=== PATIENT | male | born 1980 | race Caucasian/White ===

== ENCOUNTER 2019-06-09 21:28 | Emergency (ER) | payer MEDICAID ==
[~2019-06-09] VITALS: Ht 182.9 cm; Wt 88.5 kg
--- NOTE | 2019-06-09 21:50 | NUR ---
ED Nurse Note: Pt ambulated to ED from [facility], reports 2/10 pain in R foot second toe after having it twisted during the sport, no visible deformation
[2019-06-09] MEDS ORDERED: NAPROXEN250 MG ORAL (22:18)
--- NOTE | 2019-06-09 22:18 | Emergency Room Report ---
History of Present Illness General Chief Complaint: Lower Extremity Injury Source: Patient Present Illness HPI 39-year-old male, no past medical history no surgical history presents with right second toe pain, patient states he was doing martial arts, patient states his right second toe got caught on the mat, he did a twisting motion and then he had pain, he is gone achy pain worsened with movement alleviated with rest severity is moderate, intermittent, patient presents for evaluation. Allergies: Coded Allergies: No Known Allergies (Unverified , 06/09/19) Patient History Past Medical History: see triage record Reviewed Nursing Documentation: PMH: Agreed; PSxH: Agreed Nursing Documentation-PMH Past Medical History: No Stated History Review of Systems All Other Systems: negative except mentioned in HPI Physical Exam Vital Signs Date Time Temp Pulse Resp B/P (MAP) Pulse Ox O2 Delivery O2 Flow Rate FiO2 06/09/19 21:43 98.2 75 14 131/87 (102) 97 Room Air Sp02 EP Interpretation: reviewed, normal General Appearance: well appearing, no apparent distress, alert Head: normocephalic, atraumatic Eyes: bilateral eye PERRL, bilateral eye EOMI Neck: supple, thyroid normal, supple/symm/no masses Respiratory: no respiratory distress, no accessory muscle use Musculoskeletal: normal inspection, other - Right second toe, proximal distal phalange pain, with echymosis Neurologic: alert, oriented x3 Psychiatric: mood/affect normal Skin: no rash, warm/dry Medical Decision Making Diagnostic Impression: Primary Impression: Phalanges fracture, foot Qualified Codes: S92.534A - Nondisplaced fracture of distal phalanx of right lesser toe(s), initial encounter for closed fracture ER Course Patient presents with right foot pain, most likely a fracture. X-ray shows a proximal phalange fracture Neurovascular exam unremarkable 2+ PT DP, sensation grossly intact, fires EHL, Will provide patient with a walking boot, referral to Ortho Other X-Ray Diagnostic Results Other X-Ray Diagnostic Results : X-Ray ordered: Right Foot complete # of Views/Limited Vs Complete: 3 View Indication: Pain EP Interpretation: Yes Interpretation: other - proximal phalange distal fracture Impression: Other - proximal phalange distal fracture Electronically Signed by: Fawad Hooper MD Last Vital Signs Date Time Temp Pulse Resp B/P (MAP) Pulse Ox O2 Delivery O2 Flow Rate FiO2 06/09/19 21:43 98.2 75 14 131/87 (102) 97 Room Air Disposition: HOME, SELF-CARE Condition: Stable Scripts Naproxen* (NAPROSYN*) 250 Mg Tablet 250 MG ORAL BID PRN for For Pain, #20 TAB 0 Refills Prov: Fawad Hooper MD 06/09/19 Referrals: [facility] Patient Instructions: Toe Fracture, [id number] Additional Instructions: The patient was provided with discharge instructions, notified to follow-up with a primary care doctor and or specialist in the next 24-48 hours, and to return to the ED if they have worsening of their symptoms. Please note that this report is being documented using [employer] technology. This can lead to erroneous entry secondary to incorrect interpretation by the dictating instrument. Fawad Hooper MD Jun 09, 2019 22:18
[2019-06-09 22:25] VITALS: BP 131/87
--- NOTE | 2019-06-09 22:25 | NUR ---
ER DISCHARGE NOTE: Patient is cleared to be discharged per ERMD, pt is aox4, on room air, with stable vital signs. pt was given dc and prescription instructions, pt was able to verbalize understanding, pt id band removed. pt is able to ambulate with steady gait. pt took all belongings.
--- NOTE | 2019-06-09 22:30 | Diagnostic Imaging Report ---
Indication: Foot Pain Comparison: None Findings: 3 views of the right foot were obtained. There is an acute intra-articular fracture involving the head of the second proximal phalange extending into the PIP joint. IMPRESSION: Acute fracture of the head of the second proximal phalange
== END 2019-06-09 22:25 | disposition home or self-care (01) ==
LOC: EMR 21:45
DX: S92.534A Nondisplaced fracture of distal phalanx of right lesser toe(s), initial encounter for closed fracture (principal); X50.1XXA Overexertion from prolonged static or awkward postures, initial encounter; Y93.75 Activity, martial arts; Y92.9 Unspecified place or not applicable
CPT/HCPCS: 73630; Z7502; 99283